=== PATIENT | female | born 1965 | race Asian ===

== ENCOUNTER 2017-12-17 14:06 | Emergency (ER) | payer OTHER ==
[2017-12-17 14:34] LABS: ADD MAN DIFF? NO
[2017-12-17 14:39] LABS: BASOPHILS % 0.4 % (0.0-2.0); EOSINOPHILS # 0.3 10^3/ul (0.0-0.5); EOSINOPHILS % 5.7 % (0.0-7.0); HEMATOCRIT 35.7 % (37.0-47.0); HEMOGLOBIN 11.7 g/dl (12.0-16.0); LYMPHOCYTES # 2.7 10^3/ul (0.8-2.9); LYMPHOCYTES % 48.7 % (15.0-51.0); MEAN CORPUSCULAR HEMOGLOBIN 27.7 pg (29.0-33.0); MEAN CORPUSCULAR HGB CONC 32.8 g/dl (32.0-37.0); MEAN CORPUSCULAR VOLUME 84.4 fl (82.0-101.0); MEAN PLATELET VOLUME 9.9 fl (7.4-10.4); MONOCYTE # 0.6 10^3/ul (0.3-0.9); MONOCYTES % 9.9 % (0.0-11.0); NEUTROPHILS % 34.8 % (39.0-77.0); PLATELET COUNT 137 10^3/UL (140-415); RED BLOOD COUNT 4.23 10^6/ul (4.20-5.40)
[2017-12-17 14:39] LABS: WHITE BLOOD COUNT 5.6 10^3/ul (4.8-10.8)
[2017-12-17] MEDS: ONDANSETRON 4 MG INJ IV (14:42)
[2017-12-17] MEDS: KETOROLAC 15 MG INJ IV (14:42)
[2017-12-17] MEDS: LIDOCAINE/MYLANTA 40 ML BTL PO (14:42)
[2017-12-17] MEDS: SOD CHLORIDE 0.9% 500 ML IV (14:42)
[2017-12-17] MEDS: BELLADONNA/PHENOBARBITAL TAB PO (14:42)
[2017-12-17] MEDS: FAMOTIDINE 20 MG TAB PO (14:42)
[2017-12-17 14:58] LABS: ALANINE AMINOTRANSFERASE 215 IU/L (13-69); ALBUMIN 3.9 g/dl (3.3-4.9); ALBUMIN/GLOBULIN RATIO 0.86; ALKALINE PHOSPHATASE 92 IU/L (42-121); ANION GAP 15 (8-16); ASPARTATE AMINO TRANSFERASE 141 IU/L (15-46); BILIRUBIN,INDIRECT 0.4 mg/dl (0-1.1); BILIRUBIN,TOTAL 0.4 mg/dl (0.2-1.3); BLOOD UREA NITROGEN 9 mg/dl (7-20); CALCIUM 9.4 mg/dl (8.4-10.2); CARBON DIOXIDE 26 mmol/L (21-31); CHLORIDE 107 mmol/L (97-110); CREATININE 0.61 mg/dl (0.44-1.00); GLUCOSE 163 mg/dl (70-220); LIPASE 172 U/L (23-300); POTASSIUM 4.4 mmol/L (3.5-5.1); SODIUM 144 mmol/L (135-144); TOTAL PROTEIN 8.4 g/dl (6.1-8.1)
[2017-12-17 15:09] LABS: TROPONIN-I < 0.010 ng/ml (0.000-0.120)
[2017-12-17 15:21] LABS: URINE BLOOD (Dip) POC Trace-intact (NEGATIVE); URINE GLUCOSE (Dip) POC Negative (NEGATIVE); URINE KETONES (Dip) POC Negative (NEGATIVE); URINE LEUKOCYTE EST (Dip) POC Negative (NEGATIVE); URINE NITRITE (Dip) POC Negative (NEGATIVE); URINE TOTAL PROTEIN POC Negative (NEGATIVE)
== END 2017-12-17 15:40 | disposition home or self-care (01) ==
LOC: E/R 14:06
DX: K29.00 Acute gastritis without bleeding (principal); E66.9 Obesity, unspecified; I10 Essential (primary) hypertension; Z68.30 Body mass index [BMI] 30.0-30.9, adult
CPT/HCPCS: 36415; 80053; 81003; 83690; 84484; 85025; 93005; 96374; 96375; 99284-25

== ENCOUNTER 2018-01-14 15:50 | Emergency (ER) | payer SELFPAY, OTHER | END 2018-01-14 19:17 | disposition left against medical advice (07) | LOC: E/R 15:50 | DX: Z53.21 Procedure and treatment not carried out due to patient leaving prior to being seen by health care provider (principal) ==